=== PATIENT | female | born 1955 | race Caucasian/White ===

== ENCOUNTER 2021-04-19 01:38 | Inpatient (IN) ==
[2021-04-19] MEDS ORDERED: Isovue-370 500 ML BOTTLE IVP ONE (02:48)
[2021-04-19 02:52] LABS: Basophils % 0.2 %; Eosinophils # 0.1 K/mcL (0.0-0.6); Eosinophils % 0.6 %; Hematocrit 35.5 % (35.3-44.9); Hemoglobin 11.2 g/dL (11.5-15.4); Immature Granulocytes % 0.3 % (0-4); Lymphocytes # 0.7 K/mcL (0.6-4.6); Lymphocytes % 5.6 %; Mean Corpuscular HGB Conc 31.5 g/dL (31.6-35.5); Mean Corpuscular Hemoglobin 28.6 pg (28.0-33.3); Mean Corpuscular Volume 90.8 fL (83.0-100.0); Mean Platelet Volume 11.1 fL (9.4-12.4); Monocytes # 0.8 K/mcL (0.0-1.3); Monocytes % 6.5 %; Neutrophils # 10.6 K/mcL (1.6-8.9); Platelet Count 345 K/mcL (140-400); Red Blood Count 3.91 M/mcL (3.82-4.97); Red Cell Distribution Width 14.5 % (11.5-14.5); Segmented Neutrophils % 86.8 %; White Blood Count 12.2 K/mcL (4.3-11.1)
[2021-04-19 03:09] LABS: Albumin 3.4 g/dL (3.5-5.7); Albumin/Globulin Ratio 1.3 (1.1-2.2); Bilirubin,Direct 0.1 mg/dL (0.0-0.2); Bilirubin,Indirect 0.1 mg/dL (0.0-1.0); Bilirubin,Total 0.2 mg/dL (0.3-1.0); Calcium 8.4 mg/dL (8.6-10.3); Globulin 2.7 g/dL (2.4-3.5); Potassium 4.6 mEq/L (3.5-5.1); Total Protein 6.1 g/dL (6.4-8.9)
[2021-04-19 03:13] LABS: Troponin I 0.05 ng/mL (< 0.04)
[2021-04-19 03:27] LABS: Bacteria,Urine Few per hpf (None-Few); Bilirubin,Urine Negative (Negative); Blood,Urine Small (Negative); Clarity,Urine Turbid (Clear); Color,Urine Yellow (Yellow); Glucose,Urine (UA) Normal (Normal); Hyaline Casts,Urine Few per lpf (None Seen); Ketones,Urine Negative (Negative); Leukocyte Esterase,Urine Large (Negative); Mucus,Urine Few per lpf (None-Few); Nitrite,Urine Negative (Negative); PH,Urine 5.5 pH Units (5.0-8.0); Protein,Urine 30 mg/dL (Neg-Trace); Specific Gravity,Urine 1.026 (1.010-1.025); Squamous Epithelial Cell,Urine Moderate per hpf (None-Few); Urobilinogen,Urine Normal (Normal); WBC,Urine 15-30 per hpf (0-3)
[2021-04-19] MEDS ORDERED: Aspirin 81 MG TAB.CHEW PO ONE (05:07)
[2021-04-19] MEDS ORDERED: 0.9 % Sodium Chloride 1,000 ML IVC ONE (05:48)
[2021-04-19] MEDS ORDERED: Melatonin 3 MG TABLET PO PRN (07:16)
[2021-04-19] MEDS ORDERED: MOM Conc 10 ML UD.LIQ PO PRN (07:16)
[2021-04-19] MEDS ORDERED: Naloxone 0.4 MG/ML INJ IVP PRN (07:16)
[2021-04-19] MEDS ORDERED: Mag Hydrox/Al Hydrox/Simeth 30 ML UDC PO PRN (07:16)
[2021-04-19] MEDS ORDERED: Perflutren Lipid Microsphere 1.3 ML in 0.9 % Sodium Chloride 8.7 ML IVP PRN (09:30)
[2021-04-19] MEDS: Ringers Solution, Lactated 1,000 ML IVC SCH (11:38)
[2021-04-19] MEDS: FLUoxetine 20 MG CAPSULE PO SCH (12:02)
[2021-04-19] MEDS: BuPROPion XL (24 HR) 150 MG TABLET PO SCH (12:02)
[2021-04-19] MEDS: cefTRIAXone 1,000 MG in Water for inj. (sterile) 10 ML IVP SCH (12:02)
[2021-04-19] MEDS: *HR* Heparin 5,000 UNIT/ML VIAL SQ SCH ×2 (14:24→22:51)
[2021-04-19] MEDS: Ondansetron ODT 4 MG TAB.RAPDIS SL PRN (19:29)
[2021-04-20] MEDS: Ringers Solution, Lactated 1,000 ML IVC SCH (00:23)
[2021-04-20 04:09] LABS: Hematocrit 33.4 % (35.3-44.9); Hemoglobin 10.8 g/dL (11.5-15.4); Mean Corpuscular HGB Conc 32.3 g/dL (31.6-35.5); Mean Corpuscular Volume 89.8 fL (83.0-100.0); Mean Platelet Volume 11.4 fL (9.4-12.4); Platelet Count 327 K/mcL (140-400); Red Blood Count 3.72 M/mcL (3.82-4.97); Red Cell Distribution Width 14.6 % (11.5-14.5); White Blood Count 7.2 K/mcL (4.3-11.1)
[2021-04-20 04:27] LABS: BUN/Creatinine Ratio 18 (6-26); Blood Urea Nitrogen 19 mg/dL (8-23); Carbon Dioxide 17 mEq/L (23-29); Chloride 109 mEq/L (98-107); Glucose 88 mg/dL (70-105); Magnesium 1.4 mg/dL (1.6-2.6); Osmolality,Calculated 280 (280-300); Potassium 4.1 mEq/L (3.5-5.1); Sodium 134 mEq/L (136-145); eGFR For African Americans > 60 (> 60); eGFR For Non-African Americans 53 (> 60)
[2021-04-20] MEDS: Acetaminophen 325 MG TABLET PO PRN (05:47)
[2021-04-20] MEDS: *HR* Heparin 5,000 UNIT/ML VIAL SQ SCH ×3 (05:48→21:21)
[2021-04-20] MEDS: allopurinoL 100 MG TABLET PO SCH (09:31)
[2021-04-20] MEDS: BuPROPion XL (24 HR) 150 MG TABLET PO SCH (09:31)
[2021-04-20] MEDS: Aspirin Enteric Coated 81 MG Tablet PO SCH (09:31)
[2021-04-20] MEDS: FLUoxetine 20 MG CAPSULE PO SCH (09:31)
[2021-04-20] MEDS: cefTRIAXone 1,000 MG in Water for inj. (sterile) 10 ML IVP SCH (09:32)
[2021-04-20] MEDS ORDERED: Regadenoson 0.4 MG/5 ML SYRINGE IVP ONE (10:10)
[2021-04-20] MEDS ORDERED: Magnesium Sulfate 1 GM/102 ML PIGGYBACK IVPB ONE (10:44)
[2021-04-20] MEDS ORDERED: 0.9 % Sodium Chloride 1,000 ML IVC SCH (11:00)
[2021-04-20] MEDS: Ondansetron ODT 4 MG TAB.RAPDIS SL PRN (22:23)
[2021-04-21 01:51] LABS: Hematocrit 31.3 % (35.3-44.9); Mean Corpuscular HGB Conc 31.9 g/dL (31.6-35.5); Mean Corpuscular Hemoglobin 28.3 pg (28.0-33.3); Mean Corpuscular Volume 88.7 fL (83.0-100.0); Mean Platelet Volume 10.9 fL (9.4-12.4); Platelet Count 337 K/mcL (140-400); Red Blood Count 3.53 M/mcL (3.82-4.97); Red Cell Distribution Width 14.5 % (11.5-14.5); White Blood Count 5.2 K/mcL (4.3-11.1)
[2021-04-21 02:10] LABS: BUN/Creatinine Ratio 16 (6-26); Blood Urea Nitrogen 16 mg/dL (8-23); Carbon Dioxide 16 mEq/L (23-29); Chloride 109 mEq/L (98-107); Glucose 109 mg/dL (70-105); Magnesium 1.4 mg/dL (1.6-2.6); Osmolality,Calculated 278 (280-300); Sodium 133 mEq/L (136-145); eGFR For African Americans > 60 (> 60); eGFR For Non-African Americans 57 (> 60)
[2021-04-21] MEDS: *HR* Heparin 5,000 UNIT/ML VIAL SQ SCH (04:57)
[2021-04-21] MEDS ORDERED: Magnesium Sulfate 1 GM/102 ML PIGGYBACK IVPB ONE (07:26)
[2021-04-21] MEDS: cefTRIAXone 1,000 MG in Water for inj. (sterile) 10 ML IVP SCH (09:50)
[2021-04-21] MEDS: FLUoxetine 20 MG CAPSULE PO SCH (09:52)
[2021-04-21] MEDS: Aspirin Enteric Coated 81 MG Tablet PO SCH (09:52)
[2021-04-21] MEDS: BuPROPion XL (24 HR) 150 MG TABLET PO SCH (09:52)
[2021-04-21] MEDS: allopurinoL 100 MG TABLET PO SCH (09:52)
[2021-04-21] MEDS: Ondansetron ODT 4 MG TAB.RAPDIS SL PRN (09:56)
[2021-04-21] MEDS: Magnesium Sulfate 1 GM/102 ML PIGGYBACK IVPB SCH ×2 (17:57→23:55)
[2021-04-21] MEDS: Acetaminophen 325 MG TABLET PO PRN (22:13)
[2021-04-22 03:07] LABS: Hematocrit 30.2 % (35.3-44.9); Hemoglobin 9.6 g/dL (11.5-15.4); Mean Corpuscular HGB Conc 31.8 g/dL (31.6-35.5); Mean Corpuscular Hemoglobin 28.1 pg (28.0-33.3); Mean Corpuscular Volume 88.3 fL (83.0-100.0); Mean Platelet Volume 10.6 fL (9.4-12.4); Platelet Count 342 K/mcL (140-400); Red Blood Count 3.42 M/mcL (3.82-4.97); Red Cell Distribution Width 14.2 % (11.5-14.5); White Blood Count 6.5 K/mcL (4.3-11.1)
[2021-04-22 03:27] LABS: Complement C3 112 mg/dL (87-200)
[2021-04-22 03:28] LABS: BUN/Creatinine Ratio 12 (6-26); Blood Urea Nitrogen 10 mg/dL (8-23); Carbon Dioxide 19 mEq/L (23-29); Chloride 101 mEq/L (98-107); Glucose 104 mg/dL (70-105); Osmolality,Calculated 265 (280-300); Potassium 3.8 mEq/L (3.5-5.1); Sodium 128 mEq/L (136-145); Uric Acid 5.7 mg/dL (2.3-7.6); eGFR For African Americans > 60 (> 60); eGFR For Non-African Americans > 60 (> 60)
[2021-04-22 03:29] LABS: Rheumatoid Factor < 10 IU/mL (Less than 14)
[2021-04-22 03:42] LABS: Thyroid Stimulating Hormone 2.164 mcIU/mL (0.340-5.600)
[2021-04-22 03:52] LABS: Vitamin B12 996 pg/mL (250-1100)
[2021-04-22 03:53] LABS: Vitamin D 25 Hydroxy 33 ng/mL (30-80)
[2021-04-22] MEDS: Acetaminophen 325 MG TABLET PO PRN (05:33)
[2021-04-22 06:46] LABS: Bilirubin,Urine Negative (Negative); Blood,Urine Negative (Negative); Clarity,Urine Clear (Clear); Color,Urine Colorless (Yellow); Glucose,Urine (UA) Normal (Normal); Ketones,Urine Negative (Negative); Leukocyte Esterase,Urine Negative (Negative); Nitrite,Urine Negative (Negative); Protein,Urine Negative (Neg-Trace); Specific Gravity,Urine 1.009 (1.010-1.025); Urobilinogen,Urine Normal (Normal)
[2021-04-22 06:49] LABS: Creatinine,Urine 42 mg/dL; Microalbumin,Urine < 7 mg/L; Protein/Creatinine Ratio,Urine 0.17 mg/mg (0.00-0.20); Sodium, Urine 85.7 mEq/L
[2021-04-22 08:00] LABS: Magnesium 1.7 mg/dL (1.6-2.6)
[2021-04-22] MEDS: BuPROPion XL (24 HR) 150 MG TABLET PO SCH (09:05)
[2021-04-22] MEDS: FLUoxetine 20 MG CAPSULE PO SCH (09:06)
[2021-04-22] MEDS: allopurinoL 100 MG TABLET PO SCH (09:06)
[2021-04-22] MEDS: cefTRIAXone 1,000 MG in Water for inj. (sterile) 10 ML IVP SCH (09:06)
[2021-04-22] MEDS: Aspirin Enteric Coated 81 MG Tablet PO SCH (09:06)
[2021-04-22 11:28] VITALS: BP 103/58
[2021-04-22] MEDS: Ondansetron ODT 4 MG TAB.RAPDIS SL PRN (11:41)
[2021-04-22 14:41] LABS: % Iron Saturation 7 % (15-50); Iron 19 mcg/dL (50-170); Transferrin 186 mg/dL (203-362)
[2021-04-24 01:48] LABS: Lambda Qnt Free Light Chains 6.03 mg/L (5.71-26.30)
[2021-04-24 12:23] LABS: Kappa Qnt Free Light Chains 5.16 mg/L (3.30-19.40)
== END 2021-04-22 14:52 | disposition left against medical advice (07) | DRG 690 ==
LOC: EMEROOARM 01:38 → 3BNU 01:38 → SUATTDRO 04-20 16:36
PROVIDERS: ADMIT Internal Medicine; ATTEND Nurse Practitioner